=== PATIENT | male | born 1965 | race Caucasian/White ===

== ENCOUNTER 2019-07-12 05:17 | Day surgery (SDC) | payer OTHER ==
[2019-07-12] MEDS ORDERED: CEFAZOLIN SODIUM/DEXTROSE,ISO 50 ML IV ONE (06:13)
[2019-07-12] MEDS ORDERED: methylPREDNISolone ACETATE 80 MG/ML VIAL ONE (06:41)
[2019-07-12] MEDS ORDERED: ANESTHESIA TRAY IN PYXIS 1 EA TRAY MC ONE (06:41)
[2019-07-12] MEDS ORDERED: EPINEPHRINE (1:1000) 1 MG/ML AMPUL ONE (06:41)
[2019-07-12] MEDS ORDERED: BUPIVACAINE 0.5 % PF 150 MG/30 ML VIAL ONE (06:41)
[2019-07-12] MEDS ORDERED: ROCURONIUM BROMIDE 50 MG/5 ML ONE (06:50)
[2019-07-12] MEDS ORDERED: MIDAZOLAM HCL 2 MG/2ML VIAL ONE (06:50)
[2019-07-12] MEDS ORDERED: HYDROMORPHONE INJ 2 MG/ML DISP.SYRIN ONE (08:12)
[2019-07-12] MEDS ORDERED: HYDROCODONE/APAP 5/325MG 1 EACH TABLET ONE ×2 (08:41)
== END 2019-07-12 10:05 | disposition home or self-care (01) ==
LOC: DS 05:17
PROVIDERS: ATTEND Specialist
DX: M75.42 Impingement syndrome of left shoulder (principal); M19.012 Primary osteoarthritis, left shoulder; M65.812 Other synovitis and tenosynovitis, left shoulder; M75.82 Other shoulder lesions, left shoulder; E66.9 Obesity, unspecified; K21.9 Gastro-esophageal reflux disease without esophagitis; Z98.890 Other specified postprocedural states; Z88.0 Allergy status to penicillin; Z79.899 Other long term (current) drug therapy; Z68.36 Body mass index [BMI] 36.0-36.9, adult
CPT/HCPCS: 29821; 29824; 29826; A4217; J0171; J0690 ×2; J1040; J1100; J1170; J1885; J2250; J2405; J2704; J2710; J3490 ×2; 88304-TC; 88311-TC

== ENCOUNTER 2021-03-11 10:50 | Outpatient (CLI) | payer OTHER | END 2021-03-11 23:59 | disposition home or self-care (01) | LOC: LAB 10:50 | PROVIDERS: ATTEND Student in an Organized Health Care Education/Training Program | DX: Z01.812 Encounter for preprocedural laboratory examination (principal); Z20.822 Contact with and (suspected) exposure to COVID-19 | CPT/HCPCS: C9803; U0003 ==

== ENCOUNTER 2021-03-15 12:27 | Day surgery (SDC) | payer OTHER ==
[2021-03-15] MEDS ORDERED: EPINEPHRINE (1:1000) 1 MG/ML AMPUL ONE (14:01)
[2021-03-15] MEDS ORDERED: BUPIVACAINE 0.5 % PF 150 MG/30 ML VIAL ONE (14:01)
[2021-03-15] MEDS ORDERED: MORPHINE SULFATE/PF 10 MG/10ML (1MG/ML) AMPUL ONE (14:01)
[2021-03-15] MEDS ORDERED: FENTANYL PF 100MCG/2ML AMPUL ONE (16:13)
== END 2021-03-15 17:30 | disposition home or self-care (01) ==
LOC: DS 12:27
PROVIDERS: ATTEND Student in an Organized Health Care Education/Training Program
DX: S83.271A Complex tear of lateral meniscus, current injury, right knee, initial encounter (principal); M94.8X6 Other specified disorders of cartilage, lower leg; X58.XXXA Exposure to other specified factors, initial encounter; Y93.89 Activity, other specified; Y92.89 Other specified places as the place of occurrence of the external cause; Y99.8 Other external cause status; M94.261 Chondromalacia, right knee; I25.10 Atherosclerotic heart disease of native coronary artery without angina pectoris; E11.9 Type 2 diabetes mellitus without complications; Z98.890 Other specified postprocedural states; Z90.89 Acquired absence of other organs; Z79.899 Other long term (current) drug therapy; F17.210 Nicotine dependence, cigarettes, uncomplicated; Z88.0 Allergy status to penicillin; E66.3 Overweight
CPT/HCPCS: 29880; A4217; A6253; J0171; J0690; J2274; J2405; J2704; J3010; J3490 ×2